=== PATIENT | female | born 1965 | race Caucasian/White ===

== ENCOUNTER → 2024-09-03 | Outpatient (CLI) | payer BC ==
[~2024-09-03] MED LIST: GADOTERATE MEGLUMINE 10 MMOL/20 ML VIAL IV ONE
== END | disposition home or self-care (01) ==
LOC: RAH 10:59
PROVIDERS: ATTEND Family Medicine
DX: G93.89 Other specified disorders of brain (principal); R51.9 Headache, unspecified; E22.1 Hyperprolactinemia; Z86.011 Personal history of benign neoplasm of the brain; Z98.890 Other specified postprocedural states
CPT/HCPCS: 70553; A9575